=== PATIENT | female | born 1980 | race Hispanic/Latino ===

== ENCOUNTER 2018-02-11 20:38 | Emergency (ER) | payer OTHER ==
[2018-02-11] MEDS ORDERED: ACETAMINOPHEN-CODEINE ELIXIR 5 ML UDCUP ONE (20:54)
[2018-02-11] MEDS ORDERED: DEXAMETHASONE SOD PHOSPHATE 4 MG/ML 1ML VIAL ONE (20:54)
[2018-02-11] MEDS ORDERED: LIDOCAINE HCL 2% VISCOUS 15 ML UDCUP ONE (20:55)
[2018-02-11] MEDS ORDERED: MAGNESIUM HYDROXIDE 30 ML/UDCUP ONE (20:55)
== END 2018-02-11 21:07 | disposition home or self-care (01) ==
LOC: EDH 20:38
DX: K21.9 Gastro-esophageal reflux disease without esophagitis (principal); K29.70 Gastritis, unspecified, without bleeding; R51 Headache; R09.81 Nasal congestion
CPT/HCPCS: 93005; 96372; 99283; J1100